=== PATIENT | male | born 1995 | race Caucasian/White ===

== ENCOUNTER 2016-10-27 08:42 | Emergency (ER) | payer BC ==
[~2016-10-27] VITALS: Ht 190.5 cm; Wt 106.8 kg
[~2016-10-27 08:42] MED LIST: LEXAPRO20 MG PO; PRILOSEC 20MG20 MG PO; PROVENTIL0.09 MG/A1 IH; RT ADVAIR 228 DISKUS IH; WELLBUTRIN 100100 MG PO; WELLBUTRIN XL150 MG PO
[2016-10-27 08:44] VITALS: TEMP 96.1
[2016-10-27 09:52] LABS: PH 6 (5-8); SQUAMOUS EPITHELIAL 0-2 /hpf; URINE APPEARANCE Clear; URINE BACTERIA None Seen /hpf; URINE BILIRUBIN Negative (NEGATIVE); URINE BLOOD 1+ (NEGATIVE); URINE COLOR Amber; URINE GLUCOSE Negative (NEGATIVE); URINE KETONE Negative (NEGATIVE); URINE UROBILINOGEN >=4.0 mg/dL (NEGATIVE); URINE WBC 20-50 /hpf
[2016-10-27 11:10] LABS: CHLAMYDIA/TRACH by PCR Male Not Detected; Neisseria Gon by PCR Male DETECTED
[2016-10-27 11:36] VITALS: BP 136/86; PULSE 82
== END 2016-10-27 11:36 | disposition home or self-care (01) ==
LOC: COL.ER 08:42
PROVIDERS: Nurse Practitioner
DX: A54.01 Gonococcal cystitis and urethritis, unspecified (principal)
CPT/HCPCS: J0696

== ENCOUNTER 2017-09-11 04:39 | Inpatient (IN) | payer BC ==
[~2017-09-11] VITALS: Ht 182.9 cm; Wt 120.5 kg
[2017-09-11] MEDS ORDERED: PRILOSEC 20MG20 MG PO (04:45)
[2017-09-11 05:23] LABS: BASO # 0.1 (0.0-0.2); BASO % 0.5 % (0.0-2.0); EOS # 0.3 (0.0-0.7); EOS % 2.7 % (0-4.0); GRAN # 5.2 (1.4-6.5); GRAN % 53.3 % (42.2-75.2); HEMATOCRIT 43.1 % (42.0-52.0); HEMOGLOBIN 14.7 g/dl (13.5-18.0); LYMPH # 2.9 (1.2-3.4); LYMPH % 29.1 % (20.0-51.0); MEAN CELL VOLUME 90 fl (80.0-100.0); MEAN CORPUSCULAR HEMOGLOBIN 31 pg (27.0-31.0); MEAN CORPUSCULAR HGB CONC 34 g/dl (33.0-37.0); MEAN PLATELET VOLUME 10.4 fl (7.4-10.4); MONO # 1.4 (0.1-0.6); MONO % 14.2 % (1.7-9.3); PLATELET COUNT 228 K/mm3 (130-400); RED BLOOD COUNT 4.78 M/mm3 (4.20-5.60); REDCELL DISTRIBUTION WIDTH-CV 11.6 % (11.5-14.5)
[2017-09-11 05:40] LABS: BILIRUBIN,TOTAL 0.2 mg/dL (0.0-1.0); CALCIUM 9.1 mg/dL (8.4-10.2); CREATININE, serum 0.9 mg/dL (0.66-1.25); POTASSIUM 4.1 mmol/L (3.4-5.0); TOTAL PROTEIN 6.7 gm/dL (6.4-8.2)
[2017-09-11 08:34] VITALS: BP 147/81; PULSE 58
[2017-09-11 13:37] VITALS: BP 125/69; PULSE 55; TEMP 97.5
[2017-09-11 15:37] VITALS: BP 116/60; PULSE 63; TEMP 98.5
[2017-09-11 20:15] VITALS: BP 116/61; PULSE 62; TEMP 97.7
[2017-09-12] VITALS (7 sets, daily range): BP systolic 120–144; BP diastolic 49–70; PULSE 56–68; TEMP 97.2–98.8
[2017-09-12 06:52] LABS: ALBUMIN 3.6 gm/dL (3.5-5.0); BILIRUBIN,TOTAL 0.5 mg/dL (0.0-1.0); CALCIUM 8.7 mg/dL (8.4-10.2); CHOLESTEROL RISK RATIO 3.9; CREATININE, serum 0.76 mg/dL (0.66-1.25); MAGNESIUM 2.1 mg/dL (1.6-2.3); POTASSIUM 4.4 mmol/L (3.4-5.0); TOTAL PROTEIN 6.2 gm/dL (6.4-8.2)
[2017-09-13 04:45] VITALS: BP 133/74; PULSE 64; TEMP 98.2
[2017-09-13 07:36] VITALS: BP 155/88; PULSE 73; TEMP 97.9
[2017-09-13 12:25] VITALS: BP 150/77; PULSE 71; TEMP 97.8
== END 2017-09-13 12:26 | disposition home or self-care (01) | DRG 440 ==
LOC: COL.ER 04:39 → MEDICAL 06:25 → EDBEDREQ 07:33 → MEDICAL 09-13 12:26
PROVIDERS: Emergency Medicine; Internal Medicine
DX: K85.90 Acute pancreatitis without necrosis or infection, unspecified (principal); K86.1 Other chronic pancreatitis; J45.909 Unspecified asthma, uncomplicated; Z87.891 Personal history of nicotine dependence; F32.9 Major depressive disorder, single episode, unspecified
CPT/HCPCS: 99222-AI; 99232-AI; 99238; C9113; J1170; J1650; J2405; J7030

== ENCOUNTER 2018-10-13 18:00 | Emergency (ER) | payer OTHER ==
[~2018-10-13] VITALS: Ht 193 cm; Wt 131.8 kg
[2018-10-13] MEDS ORDERED: TYLENOL 500MG500 MG PO (19:20)
[2018-10-13 19:41] LABS: BASO # 0.1 (0.0-0.2); BASO % 0.3 % (0.0-2.0); EOS # 0.1 (0.0-0.7); EOS % 0.7 % (0-4.0); GRAN # 10.5 (1.4-6.5); GRAN % 64.4 % (42.2-75.2); HEMATOCRIT 46.1 % (42.0-52.0); HEMOGLOBIN 16.1 g/dl (13.5-18.0); LYMPH # 3.2 (1.2-3.4); LYMPH % 19.6 % (20.0-51.0); MEAN CELL VOLUME 88 fl (80.0-100.0); MEAN CORPUSCULAR HEMOGLOBIN 31 pg (27.0-31.0); MEAN CORPUSCULAR HGB CONC 35 g/dl (33.0-37.0); MEAN PLATELET VOLUME 11.2 fl (7.4-10.4); MONO # 2.4 (0.1-0.6); MONO % 14.7 % (1.7-9.3); PLATELET COUNT 278 K/mm3 (130-400); RED BLOOD COUNT 5.26 M/mm3 (4.20-5.60); REDCELL DISTRIBUTION WIDTH-CV 11.5 % (11.5-14.5)
[2018-10-13 19:50] LABS: BILIRUBIN,TOTAL 0.6 mg/dL (0.0-1.0); CALCIUM 9.1 mg/dL (8.4-10.2); POTASSIUM 3.7 mmol/L (3.4-5.0); TOTAL PROTEIN 7.1 gm/dL (6.4-8.2)
[2018-10-13 20:44] LABS: COLLECTION METHOD CLEAN CATCH
[2018-10-13] MEDS ORDERED: CIPRO 500MG TA500 MG PO (20:49)
[2018-10-13] MEDS ORDERED: FLAGYL500 MG PO (20:49)
[2018-10-13 20:52] LABS: PH 7 (5-8); SQUAMOUS EPITHELIAL None Seen /hpf; URINE APPEARANCE Clear; URINE BACTERIA None Seen /hpf; URINE BILIRUBIN Negative (NEGATIVE); URINE BLOOD Negative (NEGATIVE); URINE COLOR Yellow; URINE GLUCOSE Negative (NEGATIVE); URINE KETONE Trace (NEGATIVE); URINE LEUKOCYTE ESTERASE Negative (NEGATIVE); URINE NITRATE Negative (NEGATIVE); URINE PROTEIN(semi-quant) Negative (NEGATIVE); URINE RBC 0-2 /hpf
[2018-10-13 22:13] VITALS: BP 125/75; PULSE 95; TEMP 99.9
== END 2018-10-13 22:13 | disposition home or self-care (01) ==
LOC: COL.ER 18:00
PROVIDERS: Emergency Medicine
DX: K57.92 Diverticulitis of intestine, part unspecified, without perforation or abscess without bleeding (principal); J45.909 Unspecified asthma, uncomplicated; K21.9 Gastro-esophageal reflux disease without esophagitis; F12.90 Cannabis use, unspecified, uncomplicated; Z95.1 Presence of aortocoronary bypass graft
CPT/HCPCS: J2765; J3010; J7030; Q9967